=== PATIENT | male | born 1995 | race Two or more races ===

== ENCOUNTER 2019-12-30 18:23 | Emergency (ER) | payer MEDICAID ==
[~2019-12-30] VITALS: Ht 167.6 cm; Wt 95.0 kg
[2019-12-30 18:34] VITALS: BP 131/66
[2019-12-30] MEDS ORDERED: TETANUS, DIPHTHERIA, PERTUSSIS VAC/PF 0.5ML (>7YR OLD) IM ONE (19:45)
[2019-12-30] MEDS ORDERED: KETOROLAC 60MG/2ML VIAL IM ONE (19:45)
[2019-12-30] MEDS ORDERED: LIDOCAINE HCL/PF 1% 10 MG/ML 5ML VIAL IJ ONE (20:15)
[2019-12-30] MEDS ORDERED: BACITRACIN ZINC OINT UDPKT TOP ONE (20:15)
== END 2019-12-30 21:48 | disposition home or self-care (01) ==
LOC: ER 18:23
DX: S92.325A Nondisplaced fracture of second metatarsal bone, left foot, initial encounter for closed fracture (principal); S81.812A Laceration without foreign body, left lower leg, initial encounter; S41.112A Laceration without foreign body of left upper arm, initial encounter; V28.0XXA Motorcycle driver injured in noncollision transport accident in nontraffic accident, initial encounter; Y93.55 Activity, bike riding; Y92.488 Other paved roadways as the place of occurrence of the external cause
CPT/HCPCS: 73630; 90471; 90715; 96372; 99284; J1885; Z7610